=== PATIENT | female | born 1980 | race Caucasian/White ===

== ENCOUNTER 2016-05-29 22:50 | Emergency (ER) | payer SELFPAY ==
[~2016-05-29] VITALS: Ht 170.2 cm; Wt 112.4 kg
[2016-05-30] MEDS ORDERED: MEDROL DOSEPAK4 MG PO (00:15)
[2016-05-30] MEDS ORDERED: PERCOCET 5/31 TABLET PO (00:15)
[2016-05-30] MEDS ORDERED: VALIUM5 MG PO (00:15)
[2016-05-30 00:33] VITALS: BP 158/98
== END 2016-05-30 00:34 | disposition home or self-care (01) ==
LOC: EXP 22:50 → EME 22:50 → EXP 05-30 00:34
DX: S39.012A Strain of muscle, fascia and tendon of lower back, initial encounter (principal); X50.9XXA Other and unspecified overexertion or strenuous movements or postures, initial encounter; Y93.F2 Activity, caregiving, lifting; Y99.0 Civilian activity done for income or pay
CPT/HCPCS: 99281; 99284; J7512

== ENCOUNTER 2016-06-14 02:03 | Emergency (ER) | payer SELFPAY ==
[~2016-06-14] VITALS: Ht 170.2 cm; Wt 111.8 kg
[~2016-06-14 02:03] MED LIST: MEDROL DOSEPAK4 MG PO; PERCOCET 5/31 TABLET PO; VALIUM5 MG PO
[2016-06-14 02:45] LABS: ADD MIUA? NO; BILIRUBIN NEGATIVE; BLOOD NEGATIVE; COLOR YELLOW ((YELLOW)); GLUCOSE (STRIP) NEGATIVE; KETONES NEGATIVE; LEUKOCYTES NEGATIVE; NITRITE NEGATIVE; PROTEIN (STRIP) NEGATIVE; SPECIFIC GRAVITY 1.014 (1.000-1.030); UCUL ADDED? NO; UROBILINOGEN 0.2 MG/DL (0.2-1.0)
[2016-06-14 03:10] LABS: HEMATOCRIT 37.7 % (36.0-46.0); MCH 30.7 PG (29.0-34.0); MCHC 33.7 G/DL (30.0-36.0); MCV 91.1 FL (83-99); MEAN PLAT.VOLUME 10.8 uM^3 (9.5-12.4); PLATELET COUNT 330 K/uL (156-360); RBC DIS.WIDTH-CV 12.9 % (11.8-14.6); RBC DIS.WIDTH-SD 42.5 % (39-53); RED BLOOD COUNT 4.14 M/uL (3.80-5.20); WHITE BLOOD COUNT 10.5 K/uL (4.1-10.2)
[2016-06-14 03:21] LABS: CHLORIDE 110 mEq/L (99-109); POTASSIUM 3.9 mEq/L (3.7-5.4); SODIUM 141 mEq/L (136-147)
[2016-06-14 03:23] LABS: GLUCOSE 124 mg/dL (70-99)
[2016-06-14 03:25] LABS: ANION GAP 12 MEQ/L (2-14); TOTAL BILIRUBIN 0.5 mg/dL (0.0-1.0)
[2016-06-14 03:27] LABS: ALKALINE PHOSPHATASE 61 IU/L (3-129); GFR ESTIMATE (CALCULATED) > 59 mL/min/
[2016-06-14 03:28] LABS: UREA NITROGEN (BUN) 13 mg/dL (9-23)
[2016-06-14 03:30] LABS: LIPASE 23 U/L (1.0-51.0)
[2016-06-14] MEDS ORDERED: ZANAFLEX2 MG PO (03:36)
[2016-06-14] MEDS ORDERED: NORCO 5/3251 TABLET PO (03:36)
[2016-06-14 03:42] VITALS: BP 125/85
== END 2016-06-14 03:43 | disposition home or self-care (01) ==
LOC: EME 02:03
PROVIDERS: Emergency Medicine
DX: M54.5 Low back pain (principal); S46.912A Strain of unspecified muscle, fascia and tendon at shoulder and upper arm level, left arm, initial encounter; I10 Essential (primary) hypertension
CPT/HCPCS: 74176; 80053; 81003; 83690; 85027; 99281; 99283; J1885